=== PATIENT | male | born 1945 | race Caucasian/White ===

== ENCOUNTER 2016-11-06 11:11 | Inpatient (IN) | payer MEDICARE, BC ==
[~2016-11-06] VITALS: Ht 177.8 cm; Wt 84.5 kg
[2016-11-06] MEDS ORDERED: METHYLPRED SOD SUCC 125 MG/2 ML VIAL ONE (11:37)
[2016-11-06] MEDS ORDERED: DUONEB INH ONE (11:38)
[2016-11-06] MEDS ORDERED: CEFTRIAXONE 1 GM VIAL ONE (14:22)
[2016-11-06] MEDS ORDERED: SODIUM CHLORIDE 0.9% 100 ML IV ONE (14:22)
[2016-11-06] MEDS ORDERED: MAG HYDROX 30 ML UDC PO PRN (15:10)
[2016-11-06] MEDS ORDERED: SALINE FLUSH 10 ML FLUSH PRN (15:10)
[2016-11-06] MEDS ORDERED: ALU/MAG/SIM 30 ML UDC PO PRN (15:10)
[2016-11-06] MEDS ORDERED: BISACODYL 10 MG SUPP RECTAL PRN (15:10)
[2016-11-06] MEDS ORDERED: BISACODYL EC 5 MG TAB PO PRN (15:10)
[2016-11-06] MEDS ORDERED: SODIUM CHLORIDE 0.9% 250 ML IV ONE (15:43)
[2016-11-06] MEDS ORDERED: AZITHROMYCIN 500 MG VIAL IV ONE (15:43)
[2016-11-06 16:37] VITALS: RESP 18
[2016-11-06 16:39] VITALS: BP_SYST 124; RESP 18; TEMP 98.3
[2016-11-06 16:41] VITALS: Ht 177.8 cm; Wt 84.5 kg
[2016-11-06] MEDS: DUONEB INH SCH ×3 (16:53→23:32)
[2016-11-06] MEDS ORDERED: KCL CR 20 MEQ TAB PO ONE (18:15)
[2016-11-06] MEDS: CHLORTHALIDONE 25 MG TAB PO SCH (18:31)
[2016-11-06] MEDS: IRBESARTAN 150 MG TAB PO SCH (18:31)
[2016-11-06] MEDS: CETIRIZINE 10 MG TAB PO SCH (18:32)
[2016-11-06] MEDS: TAMSULOSIN 0.4 MG CAP PO SCH (18:32)
[2016-11-06] MEDS: Finasteride 5 MG TAB PO SCH (18:32)
[2016-11-06] MEDS: amLODIPine 10 MG TAB PO SCH (18:32)
[2016-11-06] MEDS: NEB-ALBUTEROL 2.5 MG/3 ML INH SCH (19:00)
[2016-11-06] MEDS: NEB-BROVANA 15 MCG/2 ML INH SCH (19:01)
[2016-11-06 19:07] VITALS: RESP 18
[2016-11-06 19:14] VITALS: BP_SYST 122; RESP 16; TEMP 97.4
[2016-11-06] MEDS: FLUTICASONE 0.05% NA BTL NARE EACH SCH (21:09)
[2016-11-06] MEDS: HYDROXYCHLOROQUINE 200 MG PO SCH (21:09)
[2016-11-06] MEDS: MELOXICAM 7.5 MG TAB PO SCH (21:09)
[2016-11-06] MEDS: SALINE FLUSH 10 ML FLUSH SCH (21:10)
[2016-11-07 00:01] VITALS: BP_SYST 109; RESP 16; TEMP 97.3
[2016-11-07] MEDS: SODIUM CHLORIDE 0.9% FLUSH BAG 500 ML IV SCH (00:21)
[2016-11-07] MEDS: NEB-ALBUTEROL 2.5 MG/3 ML INH SCH ×2 (07:00→19:00)
[2016-11-07 07:35] VITALS: BP_SYST 130; RESP 28; TEMP 97.8
[2016-11-07] MEDS: DUONEB INH SCH ×5 (07:41→23:07)
[2016-11-07] MEDS: NEB-BROVANA 15 MCG/2 ML INH SCH ×2 (07:41→19:38)
[2016-11-07] MEDS: amLODIPine 10 MG TAB PO SCH (08:49)
[2016-11-07] MEDS: HYDROXYCHLOROQUINE 200 MG PO SCH ×2 (08:50→20:27)
[2016-11-07] MEDS: TAMSULOSIN 0.4 MG CAP PO SCH (08:50)
[2016-11-07] MEDS: CETIRIZINE 10 MG TAB PO SCH (08:50)
[2016-11-07] MEDS: IRBESARTAN 150 MG TAB PO SCH (08:50)
[2016-11-07] MEDS: CHLORTHALIDONE 25 MG TAB PO SCH (08:50)
[2016-11-07] MEDS: Finasteride 5 MG TAB PO SCH (08:50)
[2016-11-07] MEDS: MELOXICAM 7.5 MG TAB PO SCH ×2 (08:51→20:27)
[2016-11-07] MEDS: FLUTICASONE 0.05% NA BTL NARE EACH SCH ×2 (08:51→20:26)
[2016-11-07] MEDS: ENOXAPARIN 40 MG/0.4 ML SYR SUBQ SCH (08:52)
[2016-11-07] MEDS: SALINE FLUSH 10 ML FLUSH SCH ×2 (08:52→20:25)
[2016-11-07 11:21] VITALS: BP_SYST 102; RESP 24; TEMP 97.2
[2016-11-07] MEDS ORDERED: KCL CR 20 MEQ TAB PO ONE (14:20)
[2016-11-07 15:27] VITALS: BP_SYST 98; RESP 24; TEMP 97.5
[2016-11-07 19:38] VITALS: BP_SYST 104; RESP 18; TEMP 98
[2016-11-07 23:29] VITALS: BP_SYST 98; RESP 20; TEMP 97.5
[2016-11-08 04:39] VITALS: BP_SYST 115; RESP 20; TEMP 97.4
[2016-11-08] MEDS: SODIUM CHLORIDE 0.9% FLUSH BAG 500 ML IV SCH (06:27)
[2016-11-08] MEDS: NEB-ALBUTEROL 2.5 MG/3 ML INH SCH ×2 (07:00→19:00)
[2016-11-08 07:14] VITALS: BP_SYST 110; RESP 20; TEMP 97.6
[2016-11-08] MEDS: NEB-BROVANA 15 MCG/2 ML INH SCH ×2 (07:30→19:50)
[2016-11-08] MEDS: DUONEB INH SCH ×5 (07:30→22:52)
[2016-11-08] MEDS: SALINE FLUSH 10 ML FLUSH SCH ×2 (09:21→19:33)
[2016-11-08] MEDS: CETIRIZINE 10 MG TAB PO SCH (09:22)
[2016-11-08] MEDS: FLUTICASONE 0.05% NA BTL NARE EACH SCH ×2 (09:22→20:45)
[2016-11-08] MEDS: Finasteride 5 MG TAB PO SCH (09:22)
[2016-11-08] MEDS: IRBESARTAN 150 MG TAB PO SCH (09:23)
[2016-11-08] MEDS: MELOXICAM 7.5 MG TAB PO SCH ×2 (09:23→20:45)
[2016-11-08] MEDS: CHLORTHALIDONE 25 MG TAB PO SCH (09:23)
[2016-11-08] MEDS: amLODIPine 10 MG TAB PO SCH (09:24)
[2016-11-08] MEDS: HYDROXYCHLOROQUINE 200 MG PO SCH (09:24)
[2016-11-08] MEDS: ENOXAPARIN 40 MG/0.4 ML SYR SUBQ SCH (09:25)
[2016-11-08 10:56] VITALS: BP_SYST 108; RESP 20; TEMP 97.2
[2016-11-08 14:48] VITALS: BP_SYST 99; RESP 20; TEMP 97.7
[2016-11-08 19:22] VITALS: BP_SYST 129; RESP 20; TEMP 97.9
[2016-11-08] MEDS: VORICONAZOLE 200 MG TAB PO SCH (20:43)
[2016-11-08] MEDS: SACCHA BOULARDII 250MG CAP PO SCH (20:44)
[2016-11-08] MEDS: FAMOTIDINE 20 MG TAB PO SCH (20:45)
[2016-11-08 23:45] VITALS: BP_SYST 120; RESP 20; TEMP 97.8
[2016-11-09 04:49] VITALS: BP_SYST 132; RESP 20; TEMP 97.8
[2016-11-09] MEDS: SODIUM CHLORIDE 0.9% FLUSH BAG 500 ML IV SCH ×2 (06:00→06:12)
[2016-11-09] MEDS: NEB-BROVANA 15 MCG/2 ML INH SCH ×2 (06:37→18:59)
[2016-11-09] MEDS: DUONEB INH SCH ×5 (06:37→22:39)
[2016-11-09] MEDS: NEB-ALBUTEROL 2.5 MG/3 ML INH SCH ×2 (07:00→18:58)
[2016-11-09 07:28] VITALS: BP_SYST 123; RESP 24; TEMP 97.4
[2016-11-09] MEDS: VORICONAZOLE 200 MG TAB PO SCH ×2 (09:00→21:05)
[2016-11-09] MEDS: SALINE FLUSH 10 ML FLUSH SCH ×2 (12:07→20:00)
[2016-11-09] MEDS: SACCHA BOULARDII 250MG CAP PO SCH ×2 (12:09→21:05)
[2016-11-09] MEDS: IRBESARTAN 150 MG TAB PO SCH (12:09)
[2016-11-09] MEDS: FLUTICASONE 0.05% NA BTL NARE EACH SCH ×2 (12:09→21:04)
[2016-11-09] MEDS: amLODIPine 5 MG TAB PO SCH (12:10)
[2016-11-09] MEDS: MELOXICAM 7.5 MG TAB PO SCH ×2 (12:10→21:05)
[2016-11-09] MEDS: FAMOTIDINE 20 MG TAB PO SCH ×2 (12:11→21:05)
[2016-11-09] MEDS: Finasteride 5 MG TAB PO SCH (12:11)
[2016-11-09] MEDS: CETIRIZINE 10 MG TAB PO SCH (12:13)
[2016-11-09] MEDS: ENOXAPARIN 40 MG/0.4 ML SYR SUBQ SCH (12:22)
[2016-11-09 15:10] VITALS: BP_SYST 142; RESP 28; TEMP 97.2
[2016-11-09] MEDS ORDERED: LOPERAMIDE 2 MG CAPSULE PO ONE (16:25)
[2016-11-09] MEDS: ALPRAZOLAM 0.25 MG TAB PO PRN (18:07)
[2016-11-09 19:37] VITALS: BP_SYST 123; RESP 20; TEMP 97.3
[2016-11-09 22:38] VITALS: BP_SYST 103; RESP 16; TEMP 98
[2016-11-10] VITALS (9 sets, daily range): BP systolic 110–136; RESP 16–20; TEMP 97.3–98
[2016-11-10] MEDS: SODIUM CHLORIDE 0.9% FLUSH BAG 500 ML IV SCH ×2 (06:00→07:13)
[2016-11-10] MEDS: SALINE FLUSH 10 ML FLUSH SCH ×2 (06:01→20:00)
[2016-11-10] MEDS: DUONEB INH SCH ×5 (06:29→22:36)
[2016-11-10] MEDS: NEB-BROVANA 15 MCG/2 ML INH SCH ×2 (06:29→18:16)
[2016-11-10] MEDS: NEB-ALBUTEROL 2.5 MG/3 ML INH SCH ×2 (07:00→18:18)
[2016-11-10] MEDS: FLUTICASONE 0.05% NA BTL NARE EACH SCH ×2 (08:47→21:25)
[2016-11-10] MEDS: CETIRIZINE 10 MG TAB PO SCH (08:47)
[2016-11-10] MEDS: IRBESARTAN 150 MG TAB PO SCH (08:47)
[2016-11-10] MEDS: MELOXICAM 7.5 MG TAB PO SCH ×2 (08:48→21:25)
[2016-11-10] MEDS: amLODIPine 5 MG TAB PO SCH (08:48)
[2016-11-10] MEDS: Finasteride 5 MG TAB PO SCH (08:48)
[2016-11-10] MEDS: SACCHA BOULARDII 250MG CAP PO SCH ×2 (08:48→21:26)
[2016-11-10] MEDS: FAMOTIDINE 20 MG TAB PO SCH ×2 (08:48→21:26)
[2016-11-10] MEDS: VORICONAZOLE 200 MG TAB PO SCH ×2 (08:49→21:00)
[2016-11-10] MEDS: ENOXAPARIN 40 MG/0.4 ML SYR SUBQ SCH (08:49)
[2016-11-11] MEDS: ALPRAZOLAM 0.25 MG TAB PO PRN ×2 (00:02→20:13)
[2016-11-11 03:28] VITALS: BP_SYST 124; RESP 20; TEMP 97.5
[2016-11-11] MEDS: SODIUM CHLORIDE 0.9% FLUSH BAG 500 ML IV SCH ×2 (06:00→06:05)
[2016-11-11] MEDS: NEB-ALBUTEROL 2.5 MG/3 ML INH SCH ×2 (07:00→18:15)
[2016-11-11 07:11] VITALS: BP_SYST 109; RESP 16; TEMP 97.7
[2016-11-11] MEDS: NEB-BROVANA 15 MCG/2 ML INH SCH ×2 (07:36→18:16)
[2016-11-11] MEDS: DUONEB INH SCH ×5 (07:36→22:28)
[2016-11-11] MEDS: Finasteride 5 MG TAB PO SCH (09:32)
[2016-11-11] MEDS: MELOXICAM 7.5 MG TAB PO SCH ×2 (09:32→20:11)
[2016-11-11] MEDS: FLUTICASONE 0.05% NA BTL NARE EACH SCH ×2 (09:32→20:11)
[2016-11-11] MEDS: VORICONAZOLE 200 MG TAB PO SCH ×2 (09:32→20:12)
[2016-11-11] MEDS: amLODIPine 5 MG TAB PO SCH (09:33)
[2016-11-11] MEDS: IRBESARTAN 150 MG TAB PO SCH (09:33)
[2016-11-11] MEDS: CETIRIZINE 10 MG TAB PO SCH (09:33)
[2016-11-11] MEDS: FAMOTIDINE 20 MG TAB PO SCH ×2 (09:33→20:11)
[2016-11-11] MEDS: SACCHA BOULARDII 250MG CAP PO SCH ×2 (09:33→20:12)
[2016-11-11] MEDS: ENOXAPARIN 40 MG/0.4 ML SYR SUBQ SCH (09:34)
[2016-11-11 11:27] VITALS: BP_SYST 109; RESP 16; TEMP 97.9
[2016-11-11] MEDS: SALINE FLUSH 10 ML FLUSH SCH ×2 (16:50→20:12)
[2016-11-11 18:35] VITALS: BP_SYST 118; RESP 16; TEMP 97.5
[2016-11-11 19:11] VITALS: BP_SYST 122; RESP 20; TEMP 98
[2016-11-11 23:23] VITALS: BP_SYST 101; RESP 18; TEMP 97.7
[2016-11-12] VITALS (8 sets, daily range): BP systolic 109–145; RESP 16–20; TEMP 97.3–98.2
[2016-11-12] MEDS: SODIUM CHLORIDE 0.9% FLUSH BAG 500 ML IV SCH ×2 (05:30)
[2016-11-12] MEDS: DUONEB INH SCH ×3 (06:44→14:43)
[2016-11-12] MEDS: NEB-BROVANA 15 MCG/2 ML INH SCH (06:44)
[2016-11-12] MEDS: NEB-ALBUTEROL 2.5 MG/3 ML INH SCH (06:45)
[2016-11-12] MEDS ORDERED: MISSING DOSE XX ONE ×2 (08:15)
[2016-11-12] MEDS: CETIRIZINE 10 MG TAB PO SCH (09:04)
[2016-11-12] MEDS: IRBESARTAN 150 MG TAB PO SCH (09:04)
[2016-11-12] MEDS: amLODIPine 5 MG TAB PO SCH (09:04)
[2016-11-12] MEDS: Finasteride 5 MG TAB PO SCH (09:05)
[2016-11-12] MEDS: SALINE FLUSH 10 ML FLUSH SCH (09:05)
[2016-11-12] MEDS: SACCHA BOULARDII 250MG CAP PO SCH (09:05)
[2016-11-12] MEDS: MELOXICAM 7.5 MG TAB PO SCH (09:05)
[2016-11-12] MEDS: FLUTICASONE 0.05% NA BTL NARE EACH SCH (09:07)
[2016-11-12] MEDS: VORICONAZOLE 200 MG TAB PO SCH (09:07)
[2016-11-12] MEDS: FAMOTIDINE 20 MG TAB PO SCH (09:09)
[2016-11-12] MEDS: ENOXAPARIN 40 MG/0.4 ML SYR SUBQ SCH (09:11)
== END 2016-11-12 15:35 | disposition home health service (06) | DRG 177 ==
LOC: ENRESERVTM → ENRESERVDT → ER 11:11 → EMR 15:07 → ENPENDDIS 15:07 → 4NT 16:17
PROVIDERS: ADMIT Internal Medicine; ATTEND Internal Medicine
PROC: 02HV33Z Insertion of Infusion Device into Superior Vena Cava, Percutaneous Approach (ICD-10-PCS; principal; 2016-11-08)
DX: B37.1 Pulmonary candidiasis (principal); J96.21 Acute and chronic respiratory failure with hypoxia; I27.2 Other secondary pulmonary hypertension; Z99.81 Dependence on supplemental oxygen; J84.10 Pulmonary fibrosis, unspecified; J15.6 Pneumonia due to other Gram-negative bacteria; J44.0 Chronic obstructive pulmonary disease with (acute) lower respiratory infection; J44.1 Chronic obstructive pulmonary disease with (acute) exacerbation; M06.9 Rheumatoid arthritis, unspecified; K44.9 Diaphragmatic hernia without obstruction or gangrene; D64.9 Anemia, unspecified; I10 Essential (primary) hypertension; K21.9 Gastro-esophageal reflux disease without esophagitis; E78.5 Hyperlipidemia, unspecified; F41.9 Anxiety disorder, unspecified; F32.9 Major depressive disorder, single episode, unspecified; R19.7 Diarrhea, unspecified; Z87.891 Personal history of nicotine dependence
CPT/HCPCS: 36415; 36569; 71010; 76937; 78452; 80048; 80053; 82553; 82803; 82947; 83880; 84484; 85025; 87493; 87804; 93005; 93017; 93306; 94640; 94664; 94667; 94799; 96374; 96375; 99223; 99232; 99233; 99239